=== PATIENT | female | born 1940 | race Caucasian/White ===

== ENCOUNTER 2019-04-03 10:10 | Emergency (ER) | payer MEDICARE ==
[~2019-04-03] VITALS: Ht 160 cm; Wt 150.0 kg
[~2019-04-03 10:10] MED LIST: AMOXICILLIN500 MG PO; ANASTROZOLE1 MG PO; BENZONATATE200 MG PO; CRESTOR10 MG PO; DIAZEPAM5 M1 PO; FLEXERIL5 M1 PO; FOSAMAX70 MG PO; KEFLEX500 M1 PO; LORTAB 5/3255 MG PO; TERBINAFINE1 % EX; TESSALON200 MG PO; TIZANIDINE HCL2 MG PO
[2019-04-03 10:59] LABS: HEMATOCRIT 35.7 % (37.0-47.0); HEMOGLOBIN 11.6 g/dl (12.0-16.0); IMMATURE GRANULOCYTES 0.6 % (0.0-5.0); MEAN CORPUSCULAR HGB 31.2 pG CALC (26.0-32.0); MEAN CORPUSCULAR HGB CONC 32.5 g/L CALC (32.0-36.0); NEUT# 6.82 thou/uL (2.00-7.15); RED BLOOD COUNT 3.72 mill/uL (4.20-5.60); RED CELL DISTRI WIDTH 13.5 % (11.5-15.5)
[2019-04-03 11:14] LABS: ALBUMIN 4.5 g/dL (3.2-5.0); ALKALINE PHOSPHATASE 51 u/l (38-126); ANION GAP 15 (6-22 (CALC)); BILIRUBIN, TOTAL 0.6 mg/dL (0.0-1.4); BUN 16 mg/dL (8-23); BUN/CREATININE RATIO 16 (12-20 (CALC)); CARBON DIOXIDE 25 mmol/l (22-30); CHLORIDE 107 mmol/l (95-108); GFR 53 ML/MIN (>=60 (CALC)); GFR FOR AFR.AMER. > 60 ML/MIN (>=60 (CALC)); LIPASE 62 u/l (23-300); POTASSIUM 3.7 mmol/l (3.5-5.1); SGOT/AST 25 u/l (9-36); SODIUM 143 mmol/l (137-146); TOTAL PROTEIN 7.6 g/dL (6.3-8.2)
[2019-04-03 14:21] LABS: URINE BILIRUBIN - DIPSTICK NEGATIVE (NEGATIVE); URINE BLOOD DIPSTICK TRACE (NEGATIVE); URINE COLOR YELLOW; URINE GLUCOSE - DIPSTICK NEGATIVE (NEGATIVE); URINE KETONE NEGATIVE (NEGATIVE); URINE LEUK ESTERASE NEGATIVE (NEGATIVE); URINE NITRITE - DIPSTICK NEGATIVE (Negative); URINE PH 5.5 (4.5-8.0); URINE PROTEIN - DIPSTICK NEGATIVE (NEG-TRACE); URINE SPECIFIC GRAVITY 1.015; URINE UROBILINOGEN - DIPSTICK 0.2 E.U./dL (0.2)
[2019-04-03] MEDS ORDERED: TAMSULOSIN0.4 MG PO (14:53)
[2019-04-03] MEDS ORDERED: ZOFRAN4 MG/TAB PO (14:53)
[2019-04-03] MEDS ORDERED: KEFLEX500 M1 PO (14:53)
[2019-04-03 15:06] VITALS: BP 151/77
== END 2019-04-03 15:41 | disposition home or self-care (01) ==
LOC: ED 10:10
PROVIDERS: Family Medicine
DX: N20.1 Calculus of ureter (principal)
CPT/HCPCS: Q9967

== ENCOUNTER 2020-08-28 20:10 | Observation (INO) | payer MEDICARE ==
[~2020-08-28] VITALS: Ht 160 cm; Wt 64.0 kg
[~2020-08-28 20:10] MED LIST changes: +TAMSULOSIN0.4 MG PO; +ZOFRAN4 MG/TAB PO
--- NOTE | 2020-08-28 20:10 | NUR ---
PATIENT TO TREATMENT ROOM 15 FOR BEDSIDE TRIAGE.
--- NOTE | 2020-08-28 20:54 | NUR ---
Reassessment of patient completed. No distress noted.
--- NOTE | 2020-08-28 21:23 | NUR ---
Reassessment of patient completed. No distress noted.
[2020-08-28 21:26] LABS: HEMATOCRIT 38.7 % (37.0-47.0); HEMOGLOBIN 12.4 g/dl (12.0-16.0); IMMATURE GRANULOCYTES 0.2 % (0.0-5.0); MEAN CELL VOLUME 99.7 fL CALC (80.0-100.0); NEUT# 6.63 thou/uL (2.00-7.15); RED BLOOD COUNT 3.88 mill/uL (4.20-5.60); RED CELL DISTRI WIDTH 13.4 % (11.5-15.5)
[2020-08-28 21:39] LABS: ALBUMIN 4.6 g/dL (3.2-5.0); ALKALINE PHOSPHATASE 47 u/l (38-126); AMYLASE 87 u/l (30-110); ANION GAP 12 (6-22 (CALC)); BUN 19 mg/dL (8-23); BUN/CREATININE RATIO 19 (12-20 (CALC)); CARBON DIOXIDE 30 mmol/l (22-30); CHLORIDE 99 mmol/l (95-108); GFR 53 ML/MIN (>=60 (CALC)); GFR FOR AFR.AMER. > 60 ML/MIN (>=60 (CALC)); LIPASE 61 u/l (23-300); POTASSIUM 3.8 mmol/l (3.5-5.1); SGOT/AST 26 u/l (9-36); SODIUM 136 mmol/l (137-146)
[2020-08-28 21:42] LABS: BILIRUBIN, TOTAL 0.3 mg/dL (0.0-1.4)
[2020-08-28 21:51] LABS: MYOGLOBIN 42 ng/mL (0 - 62)
--- NOTE | 2020-08-28 22:46 | NUR ---
PATIENT TO RADIOLOGY
--- NOTE | 2020-08-28 23:30 | NUR ---
PATIENT RESTING QUIETLY AT THIS TIME, C/O CONTINUED ABDOMINAL PAIN, NO S//S OF DISTRES SNOTED,RESPIRATIONS EVEN AND UNLABORED, AWAITING DIAGNOSTIC RESULTS.
--- NOTE | 2020-08-29 00:22 | NUR ---
PATIENT RESTING AT THIS TIME, RESPORTS MINIMAL PAIN RELIEF FROM MEDICATION, NO S/S OF IDSTRESS.
[2020-08-29 00:33] VITALS: BP 125/62
--- NOTE | 2020-08-29 01:34 | NUR ---
PATIENT ABLE TO AMBULATE INDEPENDENTLY TO THE BATHROOM TO PROVIDE URINE SAMPLE. REPORTS MARKED RELIEF OF PAIN.
[2020-08-29 01:41] VITALS: BP 126/69
[2020-08-29 01:46] LABS: URINE BILIRUBIN - DIPSTICK NEGATIVE (NEGATIVE); URINE BLOOD DIPSTICK TRACE-INTACT (NEGATIVE); URINE COLOR YELLOW; URINE GLUCOSE - DIPSTICK NEGATIVE (NEGATIVE); URINE KETONE NEGATIVE (NEGATIVE); URINE LEUK ESTERASE NEGATIVE (NEGATIVE); URINE NITRITE - DIPSTICK NEGATIVE (Negative); URINE PROTEIN - DIPSTICK NEGATIVE (NEG-TRACE); URINE UROBILINOGEN - DIPSTICK 0.2 E.U./dL (0.2)
[2020-08-29 02:33] VITALS: BP 113/56
--- NOTE | 2020-08-29 02:59 | NUR ---
ATTEMPTED TO TRANSFER PATIENT TO A HOSPITAL BED, PATIENT REFUSED, PATIENT STATED THAT SHE IS COMFORTABLE AND WISHED TO STAY ON STRETCHER, AWAKE AND ALERT, NO C/OPAIN OR DISCOMFORT AT THIS TIME, NO S/S OF DISTRESS, RESPIRATION SEVEN AND UNLABORED, AWAITING INPATIENT ROOM ASSIGNMENT.
[2020-08-29 03:33] VITALS: BP 119/56
[2020-08-29 04:33] VITALS: BP 116/53
--- NOTE | 2020-08-29 04:56 | NUR ---
ESCORTED PATIENT TO THE BATHROOM, ABLE TO AMBULATE INDEPENDENTLY, NO C/O PAIN OR DISCOFORT,NO S/S OF DISTRESS NOTED, PO FLUIDS GIVEN.
--- NOTE | 2020-08-29 07:14 | NUR ---
HAND OFF REPORT GIVEN TO KATY
--- NOTE | 2020-08-29 07:46 | NUR ---
[id number] RESTING EYES CLOSED, NO S/Sx OF PAIN OR DISTRESS NOTED.
--- NOTE | 2020-08-29 08:27 | NUR ---
PATIENT ASSISTED TO AMBULATE TO RESTROOM
--- NOTE | 2020-08-29 08:36 | NUR ---
PATIENT ASSISTED BACK TO ROOM, TOLERATED WELL. OR LAMINATION OPERATOR PRESENT IN ROOM AWAITING PATIENT.
--- NOTE | 2020-08-29 08:43 | NUR ---
OR SUPERVISOR STITCHING DEPARTMENT DISCUSSED AND ANSWERED QUESTION FOR PATIENT. PATIENT TAKEN TO OR FOR PROCEDURE AT THIS TIME.
[2020-08-29 08:53] LABS: CHOLESTEROL HDL RATIO 3.9 (<4.4 (CALC))
--- NOTE | 2020-08-29 12:16 | NUR ---
Reassessment of patient completed. No distress noted.,LAB CURRENTLY BEDSIDE WITH PATIENT FOR LAB DRAW.
--- NOTE | 2020-08-29 12:36 | NUR ---
PATIENT ASSISTED TO SIT UP FOR LUNCH.
[2020-08-29] MEDS ORDERED: PANTOPRAZOLE SO40 M1 PO (12:58)
[2020-08-29] MEDS ORDERED: ZITHROMAX500 MG PO (12:58)
--- NOTE | 2020-08-29 14:17 | NUR ---
Discharged to: Home Discharged via: Wheelchair Accompanied by: family D/C Condition: stable Diet: 2 gm sodium Diet modification: low sodium Activity: As tolerated Home Health: NONE Follow up appointment: Special instructions: Medications: SEE MEDICATION RECONCILIATION FORM Prescriptions Given: Please notify your physician if you received either one of these vaccinations: Influenza Vaccine - Date: Pneumococcal Vaccine - Date: Patient Education Materials Provided: - Food and Drug Interaction Guide - Anticoagulation Education Booklet Contains the following information: 1. Compliance issues 2. Dietary advice 3. Follow up monitoring 4. Potential for adverse drug reactions and interactions - Smoking Cessation Booklet IF SYMPTOMS WORSEN, OR IF YOU HAVE ADDITIONAL QUESTIONS, PLEASE CONTACT YOUR PERSONAL PHYSICIAN OR SEEK EMERGENCY CARE. CALL YOUR PHYSICIAN IF YOU DO NOT GET RELIEF FROM THE PAIN MEDICATIONS PRESCRIBED, OR IF THE INTENSITY OF PAIN INCREASES, OR IF PAIN IS INTERFERING WITH ACTIVITY OR REST. IF YOU SMOKE, YOU NEED TO QUIT. IT IS GOOD FOR YOU AND EVERYONE AROUND YOU! Your physician and [facility] care about you and your health. The facts are clear. Smoking causes 1 out of 5 deaths in the [place] each year. It is the major preventable cause of emphysema, lung cancer, chronic bronchitis, heart disease and stroke. Quitting is one of the best things you can ever do for yourself and those you love. What better time to quit than now! You've already been cigarette free during your stay. Studies have shown that the first 48 hours of quitting are the toughest. Just a few of the benefits your body begins to experience are blood pressure returns to normal, the carbon monoxide level in your blood drops to normal, your chance of heart attack decreases, and your ability to smell and taste is enhanced. Here are some resources that you may find helpful: [place] [employer] [place] [employer] www.lungusa.org www.cancer.org [place] [employer] [place] Department of Health (Tobacco Prevention and Control Program) www.americanheart.org www.[place].us Finally don't forget that your doctor may be able to help you. Whichever method you choose will be good for you. IF YOU HAVE A DIAGNOSIS OF CONGESTIVE HEART FAILURE, THERE ARE SEVERAL ADDITIONAL INSTRUCTIONS FOR YOU TO FOLLOW UPON DISCHARGE FROM THE HOSPITAL. Weigh yourself every day and if weight gain is greater than 2 pounds in a day, call your physican. If you experience worsening symptoms such as: Problems with breathing or shortness of breath Ankle/foot/leg swelling Unexplained weight gain greater than 2 pounds Call your physician or come to the emergency room. IF YOU HAVE A DIAGNOSIS OF STROKE, THERE ARE SEVERAL ADDITIONAL INSTRUCTIONS FOR YOU TO FOLLOW: A stroke occurs when something happens to interrupt the steady flow of blood to the brain, like a clot or a burst in a blood vessel. Brain cells quickly begin to . These INCREASE your chance of having a STROKE: * Smoking * High blood pressure * Diabetes * Obesity WARNING SIGNS OR SYMPTOMS: * Sudden weakness on one side of body. * Sudden confusion, trouble speaking or understanding. * Sudden trouble seeing. * Sudden trouble walking or loss of balance. * Sudden severe headache with no known cause. CALL At Any Sign of Stroke. You can beat a stroke. Disabilities can be prevented or limited, but you have must go to the Emergency Department immediately. Go in an Ambulance. Save Time. Be Seen Faster! If you were admitted to the hospital for a stroke After DISCHARGE you must: * Keep ALL follow up appointments. * Take your medications as ordered by your doctor. * Do not take any other drugs without checking with your doctor first. * Do not drive unless your doctor says it is okay. * Call your doctor with any questions or concerns. IF YOU WERE DISCHARGED ON COUMADIN/WARFARIN ANTICOAGULATION THERAPY, THERE ARE SEVERAL ADDITIONAL INSTRUCTIONS FOR YOU TO FOLLOW: Anticoagulants are medications that help prevent blood clots. They are often prescribed for people with certain heart, lung and blood vessel diseases to help prevent heart attacks and strokes. IMPORTANT Anticoagulation medications have been used for many years, but it can be difficult to manage. That's because many factors can affect how they work-including small changes in dose or dose timing, what you eat or drink, other medications and stress. You and your doctor must work closely together to manage this important medication. * Take your medicine EXACTLY as instructed by your doctor. * You must have your blood drawn for PT/INR to monitor your medication. * Do not take any new medications, vitamins or herbal supplements without asking your doctor first. FOODS: * Eat the same amount of foods that contain Vitamin K every day. * Avoid or limit alcohol. * Avoid major changes in diet or notify your doctor first. FOLLOW UP MONITORING: See your physician within one week to monitor your condition. You will need to have blood tests performed to monitor the medication. DRUG INTERACTIONS: * Diet and medications can affect the PT/INR level. * Do not take or discontinue any medication or over the counter medication unless your doctor okays. * Warfarin/Coumadin increases the risk of bleeding. CALL YOUR PHYSICIAN IF: If you notice any signs of increased bleedin. Excessive bruising. 2. Abnormal bleeding from nose or gums. 3. [place], red or dark brown urine. 4. Minor bleeding or bright red blood from the bowel. CALL 911 OR GO TO THE HOSPITAL IF: 1. You have black tarry stools. 2. Sudden dizziness, faintness or weakness. 3. Cold or numbness in arm or leg. 4. Sudden chest pain. 5. Trouble talking or moving one side of body. 6. Coughing or vomiting bright red blood. 7. Severe headache or stomach pain. 8. Serious fall or hit to the head. Visit our website at [email or web address] You are going home today. Depending on your insurance coverage, you may be receiving a bill from the hospital for your hospital stay. If you have any question about your bill, please call the Business Office at [phone] or contact us at our web address: [email or web address]. If applicable, I have received my medication information as recommeded by my provider upon discharge. I have read and understand the above discharge instructions. Pt Signature: Date: Time: Witnessed by: Date: Time: Complete the record of communication to the next provider below. These discharge instructions, including discharge medications, is to be faxed to the next provider at the time of the patient's discharge. ____These instructions faxed to next Provider (Provider Name) on (Date) @ (Time) . ____The second provider involved in patient care following discharge has been faxed this information. These instructions faxed to (Provider-Home Health, Physical Therapy, Agency) on (Date) @ (Time) . OR ____Patient unable/unwilling to verbalize who the next provider of care will be, instructed patient to take these instructions to next appointment with healthcare provider.
[2020-08-29 14:22] VITALS: BP 154/87
--- NOTE | 2020-08-29 14:22 | NUR ---
D/C instructions given with verbalization of understanding. Pt. discharged home in stable condition. AMBULATED OFF UNIT WITH STEADY GAIT.
--- NOTE | 2020-08-29 14:22 | NUR ---
Discharge instructions given. Patient verbalizes understanding of same. Discharged in stable condition via Ambulatory to Home with family. All belongings sent with pt.
== END 2020-08-29 14:22 | disposition home or self-care (01) ==
LOC: ED 20:10 → ED-I 23:47 → ED 08-29 00:08 → ED-I 08-29 00:09
PROVIDERS: Emergency Medicine; Nurse Practitioner; ADMIT Internal Medicine; ATTEND Internal Medicine
PROC: 0DB98ZX Excision of Duodenum, Via Natural or Artificial Opening Endoscopic, Diagnostic (ICD-10-PCS; principal; 2020-08-29)
PROC: 0DB78ZX Excision of Stomach, Pylorus, Via Natural or Artificial Opening Endoscopic, Diagnostic (ICD-10-PCS; 2020-08-29)
DX: K25.9 Gastric ulcer, unspecified as acute or chronic, without hemorrhage or perforation (principal); K29.50 Unspecified chronic gastritis without bleeding; K29.80 Duodenitis without bleeding; K31.9 Disease of stomach and duodenum, unspecified; J18.9 Pneumonia, unspecified organism; E78.5 Hyperlipidemia, unspecified; B96.81 Helicobacter pylori [H. pylori] as the cause of diseases classified elsewhere; Z85.3 Personal history of malignant neoplasm of breast; Z90.11 Acquired absence of right breast and nipple; Z20.822 Contact with and (suspected) exposure to COVID-19
CPT/HCPCS: Q9967; S0164